=== PATIENT | female | born 1965 | race Caucasian/White ===

== ENCOUNTER 2021-03-18 07:57 | Emergency (ER) | payer OTHER ==
--- NOTE | 2021-03-18 08:22 | EDM.PDOC ---
ED HPI GENERAL MEDICAL PROBLEM - General Chief Complaint: Back Pain or Injury Stated Complaint: FELL DOWNSTAIRS LAST NIGHT [id number] Time Seen by Provider: 03/18/21 08:10 Source of Information: Reports: Patient History Limitations: Reports: No Limitations - History of Present Illness INITIAL COMMENTS - FREE TEXT/NARRATIVE: This 55 yo female patient reports to the ED with lower back and pelvic pain due to a fall. The patient reports she had recent bunion surgery, was hopping down the stairs in her home when her foot slipped and she fell down 4-5 stairs. The patient reports she has been in increased pain since the fall, but took an Oxycodone this morning for the pain. The patient reports after taking the medication she was able to move enough to get to the ED. The patient denies any loss of consciousness before during or after the fall. The patient denies hitting her head during the incident. Onset Date: 03/17/21 Duration: Constant Location: Reports: Pelvis (posterior pelvic/cocyx) Quality: Reports: Ache, Sharp Severity: Severe Improves with: Reports: Rest Worsens with: Reports: Movement Context: Reports: Trauma Associated Symptoms: Reports: No Other Symptoms Treatments [employer]: Reports: Other Medication(s) - Related Data Allergies Allergy/AdvReac Type Severity Reaction Status Date / Time No Known Allergies Allergy Verified 02/17/19 08:45 Home Meds: Home Meds buPROPion HCL [Bupropion Xl] 450 mg PO ASDIRECTED 03/18/21 [History] traZODone HCl [Trazodone HCl] 50 mg PO ASDIRECTED 03/18/21 [History] Past Medical History Psychiatric History: Reports: ADHD, Anxiety, Depression - Past Surgical History GI Surgical History: Reports: Colonoscopy ED ROS GENERAL - Review of Systems Review Of Systems: Comprehensive ROS is negative, except as noted in HPI. ED EXAM,LOWER BACK PAIN/INJURY - Physical Exam Exam: See Below Exam Limited By: No Limitations General Appearance: Alert, WD/WN, Moderate Distress Eye Exam: Bilateral Eye: EOMI, Normal Inspection, PERRL Ears: Normal External Exam, Normal Canal, Hearing Grossly Normal, Normal TMs Nose: Normal Inspection, Normal Mucosa, No Blood Throat/Mouth: Normal Inspection, Normal Lips, Normal Teeth, Normal Gums, Normal Oropharynx, Normal Voice, No Airway Compromise Head: Atraumatic, Normocephalic Neck: Normal Inspection, Supple, Non-Tender, Full Range of Motion Respiratory/Chest: No Respiratory Distress, Lungs Clear, Normal Breath Sounds, No Accessory Muscle Use, Chest Non-Tender Cardiovascular: Normal Peripheral Pulses, Regular Rate, Rhythm, No Edema, No Gallop, No JVD, No Murmur, No Rub (Female) Exam: Deferred Rectal (Female) Exam: Deferred Back Exam: Other (Lower back pain with palpation. The patient reports the pain is mostly in tailbone area with palpation of lower back) Extremities: Limited Range of Motion (due to pelvic/cocyx pain) Neurological: Alert, Normal Mood/Affect, Oriented x 3 Psychiatric: Normal Affect, Normal Mood Skin Exam: Warm, Dry, Intact, Normal Color, No Rash Lymphatic: No Adenopathy Course - Vital Signs Last Recorded V/S: Last Vital Signs Temp 97.8 F 03/18/21 08:06 Pulse 77 03/18/21 08:06 Resp 16 03/18/21 08:06 BP 117/67 03/18/21 08:06 Pulse Ox 97 03/18/21 08:06 - Orders/Labs/Meds Orders: Active Orders 24 hr Category Date Time Status Pelvis 1V or 2V [CR] Urgent Exams 03/18/21 08:14 Taken Sacrum Coccyx Min 2V [CR] Urgent Exams 03/18/21 08:14 Taken - Radiology Interpretation Free Text/Narrative:: [facility] Final Radiology Report Call: [phone] assistance Online chat: [email or web address] Name: CLARISSA RAND Age: 55Years F Date: 03/18/2021 SSN: -- : [id number] Study: CR PELVIS 1V OR 2V Requesting Physician: Rigoberto Villafana Images: 1 Addl Studies: Provided Clinical History: Fall down stairs Contrast: Contrast Medium: Contrast Amount: Contrast Method: CONFIDENTIALITY STATEMENT This report is intended only for use by the referring physician, and only in accordance with law. If you received this in error, call [phone]. Page 1 of 1 PROCEDURE INFORMATION: Exam: XR Pelvis Exam date and time: 03/18/2021 8:23 AM Age: 55 years old Clinical indication: Other: Fall down stairs TECHNIQUE: Imaging protocol: XR pelvis. Views: 1 or 2 view. COMPARISON: No relevant prior studies available. FINDINGS: Bones/joints: No acute fracture is identified. Hip joint alignment is not confirmed without lateral view(s). The femoral head articular contours are maintained, and the femoral heads appear to be of normal density. Very mild osteophyte formation is present about the left hip and bilateral sacroiliac joints. Mild productive changes are present along the greater trochanters. No focal lytic or blastic lesion is identified. Soft tissues: Phleboliths overlie the pelvis. IMPRESSION: 1. No acute fracture identified. MRI would be more sensitive to pelvic fracture as clinically appropriate. 2. Degenerative changes as described. Thank you for allowing us to participate in the care of your patient. Dictated and Authenticated by: Deondre Arnett MD 03/18/2021 8:59 AM Central Time ([place] & [place]) [facility] Final Radiology Report Call: [phone] assistance Online chat: [email or web address] Name: CLARISSA RAND Age: 55Years F Date: 03/18/2021 SSN: -- : [id number] Study: CR SACRUM COCCYX MIN 2V Requesting Physician: Rigoberto Villafana Images: 3 Addl Studies: Provided Clinical History: Fall down stairs Contrast: Contrast Medium: Contrast Amount: Contrast Method: CONFIDENTIALITY STATEMENT This report is intended only for use by the referring physician, and only in accordance with law. If you received this in error, call [phone]. Page 1 of 1 PROCEDURE INFORMATION: Exam: XR Sacrum and Coccyx, 2 or More Views Exam date and time: 03/18/2021 8:24 AM Age: 55 years old Clinical indication: Other: Fall down stairs TECHNIQUE: Imaging protocol: XR of the sacrum and coccyx, 2 or more views. COMPARISON: CR Pelvis 1V or 2V 03/18/2021 8:23 AM FINDINGS: Bones/joints: No acute fracture is identified. Soft tissues: Phleboliths overlie the pelvis. IMPRESSION: No acute fracture identified. MRI would be more sensitive to sacral fracture as clinically appropriate. Thank you for allowing us to participate in the care of your patient. Dictated and Authenticated by: Deondre Arnett MD 03/18/2021 9:00 AM Central Time ([place] & [place]) Departure - Departure Time of Disposition: 09:10 Disposition: Home, Self-Care 01 Condition: Fair Clinical Impression: Coccyx contusion Qualifiers: Encounter type: initial encounter Qualified Code(s): S30.0XXA - Contusion of lower back and pelvis, initial encounter Fall down stairs Qualifiers: Encounter type: initial encounter Qualified Code(s): W10.8XXA - Fall (on) (from) other stairs and steps, initial encounter - Discharge Information *PRESCRIPTION DRUG MONITORING PROGRAM REVIEWED*: Not Applicable *COPY OF PRESCRIPTION DRUG MONITORING REPORT IN PATIENT MIKE: Not Applicable Instructions: Tailbone Injury, [id number] Forms: ED Department Discharge Care Plan Goals: The patient was advised of the examination and x-ray results during the visit. The patient was discharged with a script for Percocet (5/325) #20 to take 1 by mouth every 4 hours as needed for pain. The patient was also given a note for work to return to work on 03/22/21. If the patient has any additional symptoms or concerns, the patient should either return to the emergency department or visit her primary care facility. Sepsis Event Note (ED) - Evaluation Sepsis Screening Result: No Definite Risk - Focused Exam Vital Signs: Vital Signs Temp Pulse Resp BP Pulse Ox 03/18/21 08:06 97.8 F 77 16 117/67 97 - My Orders Last 24 Hours: My Active Orders 03/18/21 08:14 Pelvis 1V or 2V [CR] Urgent Sacrum Coccyx Min 2V [CR] Urgent - Assessment/Plan Last 24 Hours: My Active Orders 03/18/21 08:14 Pelvis 1V or 2V [CR] Urgent Sacrum Coccyx Min 2V [CR] Urgent
--- NOTE | 2021-03-18 08:59 | CR ---
PROCEDURE INFORMATION: Exam: XR Pelvis Exam date and time: 03/18/2021 8:23 AM Age: 55 years old Clinical indication: Other: Fall down stairs TECHNIQUE: Imaging protocol: XR pelvis. Views: 1 or 2 view. COMPARISON: No relevant prior studies available. FINDINGS: Bones/joints: No acute fracture is identified. Hip joint alignment is not confirmed without lateral view(s). The femoral head articular contours are maintained, and the femoral heads appear to be of normal density. Very mild osteophyte formation is present about the left hip and bilateral sacroiliac joints. Mild productive changes are present along the greater trochanters. No focal lytic or blastic lesion is identified. Soft tissues: Phleboliths overlie the pelvis. IMPRESSION: 1. No acute fracture identified. MRI would be more sensitive to pelvic fracture as clinically appropriate. 2. Degenerative changes as described.
--- NOTE | 2021-03-18 09:01 | CR ---
PROCEDURE INFORMATION: Exam: XR Sacrum and Coccyx, 2 or More Views Exam date and time: 03/18/2021 8:24 AM Age: 55 years old Clinical indication: Other: Fall down stairs TECHNIQUE: Imaging protocol: XR of the sacrum and coccyx, 2 or more views. COMPARISON: CR Pelvis 1V or 2V 03/18/2021 8:23 AM FINDINGS: Bones/joints: No acute fracture is identified. Soft tissues: Phleboliths overlie the pelvis. IMPRESSION: No acute fracture identified. MRI would be more sensitive to sacral fracture as clinically appropriate.
== END 2021-03-18 09:18 | disposition home or self-care (01) ==
LOC: DL.ED 07:57
DX: S30.0XXA Contusion of lower back and pelvis, initial encounter (principal); W10.8XXA Fall (on) (from) other stairs and steps, initial encounter
CPT/HCPCS: 72170; 72220; 99284